=== PATIENT | male | born 1965 | race Asian ===

== ENCOUNTER 2023-08-29 06:17 | Day surgery (SDC) | payer BC ==
[2023-08-29] MEDS ORDERED: MEPERIDINE 100 MG INJ. 100 MG/ML VIAL ONE (06:42)
[2023-08-29] MEDS ORDERED: MIDAZOLAM HCL 5 MG/5 ML VIAL ONE (06:42)
[2023-08-29] MEDS ORDERED: SIMETHICONE 40 MG/0.6 ML ML ONE (06:42)
[2023-08-29 09:03] VITALS: O2SAT 96
[2023-08-29 09:40] VITALS: BP_SYST 96; PULSE 52; RESP 18
== END 2023-08-29 09:38 | disposition home or self-care (01) ==
LOC: SDS 06:17 → SMU 06:18 → SDS 09:38
PROVIDERS: ATTEND Internal Medicine Gastroenterology
DX: Z12.11 Encounter for screening for malignant neoplasm of colon (principal); K64.8 Other hemorrhoids; E11.9 Type 2 diabetes mellitus without complications; E78.5 Hyperlipidemia, unspecified; M10.9 Gout, unspecified; Z90.81 Acquired absence of spleen; Z95.0 Presence of cardiac pacemaker; Z79.84 Long term (current) use of oral hypoglycemic drugs; Z79.899 Other long term (current) drug therapy; Z80.0 Family history of malignant neoplasm of digestive organs
CPT/HCPCS: 45378; 99285; 99152; 82948; G0378; J2250; J2175